=== PATIENT | female | born 1970 | race Caucasian/White ===

== ENCOUNTER → 2016-07-19 | Outpatient (CLI) | payer OTHER ==
[~2016-07-19] MED LIST: CYCL10TA PO; EFFE75CA75 PO; IRON325T PO; KLON1TAB PO; LYRI300C PO; MEDR1VL IM; SYNT125T PO; TRAM50TA2 PO; VITA10002 PO; VITA100037 PO
--- NOTE | 2016-08-04 01:10 | ECWPNPC ---
PATIENT NAME: RANJITH EUGENE : 1970 GENDER: FEMALE VISIT DATE: 07/19/2016 DISCHARGE DATE: 07/19/16 1035 VISIT LOCKED DATE TIME: PHYSICIAN: ANAMIKA EUGENE RESOURCE: ANAMIKA EUGENE REASON FOR APPOINTMENT 1. BACK PAIN HISTORY OF PRESENT ILLNESS HISTORY OF PRESENT ILLNESS: PAIN THE PATIENT DESCRIBES THE PAIN... FALL RISK SCREENING: SCREENING :NO FALLS IN THE PAST YEAR TODAY'S VISIT: NOTES: IS LOOKING TO START PHYSICAL THERAPY. RATES PAIN TODAY 5/10 WITH A PINCHING SENSATION IN LOW BACK AND RIGHT SACRUM. SOME SHOOTING PAIN TO MID THIGH TO RIGHT LEG. NO SENSE OF WEAKNESS IN LEGS. . CURRENT MEDICATIONS TAKING KLONOPIN 1 MG TABLET 1 TABLET ORALLY AT NIGHT, NOTES: 05/03/16 1800 TAKING IRON 325 (65 FE) MG TABLET 1 TABLET ORALLY ONCE A DAY, NOTES: 05/02/16 0700 TAKING LEVOTHYROXINE SODIUM 325 TABLET 1 TABLET ORALLY ONCE A DAY, NOTES: 05/03/16699 TAKING DEPO-PROVERA 150 MG/ML SUSPENSION 1 ML INTRAMUSCULAR EVERY 3 MONTHS, NOTES: 2015 TAKING LYRICA 300 MG CAPSULE 1 CAPSULE ORALLY TWICE A DAY, NOTES: 05/03/16 1800 TAKING TRAMADOL HCL 50 MG TABLET 1 TABLET NEEDED ORALLY 3 TIMES A DAYN NEEDED, NOTES: > 1 WEEK TAKING VITAMIN D 1000 UNIT TABLET 1 TABLET ORALLY ONCE A DAY, NOTES: 05/02/16 0700 TAKING CYCLOBENZAPRINE HCL 10 MG TABLET 1 TABLET ORALLY THREE TIMES A DAY, NOTES: 05/03/16 1800 TAKING WELLBUTRIN 100 MG TABLET 300 IN AM AND 100 AT 12PM ORALLY DAILY TAKING PROZAC 20 MG CAPSULE 1 CAPSULE IN THE MORNING ORALLY ONCE A DAY NOT-TAKING ZOLOFT 25 MG TABLET 75 MG ORALLY ONCE A DAY, NOTES: 05/03/16 0700 NOT-TAKING CYANOCOBALAMIN 1000 MCG TABLET 1 TABLET ORALLY ONCE A DAY NOT-TAKING BACLOFEN 10 MG TABLET 1 TABLET WITH FOOD OR MILK ORALLY THREE TIMES A DAY NOT-TAKING VALIUM 5 MG TABLET 2 TABLET NEEDED ORALLY PRE SEDATION PAST MEDICAL HISTORY BACK PAIN,FIBROMYALGIA,CARMEN,RESTLESS LEG,HYPOTHYROID,DEPRESSION ALLERGIES MORPHINE SULFATE: ITCHING: ALLERGY ANTI-INFLAMMATORY ENZYME: DUE TO GASTRIC BYPASS: CONTRAINDICATION SOCIAL HISTORY GENERAL: TOBACCO USE ARE YOU A:NONSMOKER LEARNING BARRIERS / SPECIAL NEEDS ORIENTED TO PLAN OF CARE: PATIENT, PAIN MANAGEMENT PATIENT, ORIENTED TO PLAN OF CARE: PATIENT, PAIN MANAGEMENT PATIENT. NEW PATIENT PAIN DIARY TODAY'S VISITNOTES FROM 0-10, WHAT LEVEL IS YOUR PAIN TODAY?0 PAIN CLINIC PFS, CLERGY, PUBLIC HEALTH REFERRALS PFS REFERRAL NEEDED?NO CLERGY REFERRAL NEEDED?NO PUBLIC HEALTH REFERRAL NEEDED?NO WAS THE PROVIDER NOTIFIED OF ANY PERTINENT INFO?NO PFS REFERRAL NEEDED?NO CLERGY REFERRAL NEEDED?NO PUBLIC HEALTH REFERRAL NEEDED?NO WAS THE PROVIDER NOTIFIED OF ANY PERTINENT INFO?NO REVIEW OF SYSTEMS CONSTITUTIONAL: ANY CHANGE IN YOUR MEDICAL CONDITION? NO . CHILLS NO . FEVER NO . INFECTION: DO YOU HAVE NEW INFECTIONS? NO . DO YOU HAVE HISTORY OF MRSA? NO . MUSCULOSKELETAL: ANY NEW PATTERNS OF PAIN OR NUMBNESS? NO . GASTROENTEROLOGY: ANY NEW CHANGE IN BOWEL CONTROL? NO . GENITOURINARY: ANY NEW CHANGE IN BLADDER CONTROL? NO . IS THERE A CHANCE YOU COULD BE ? NO . HEMATOLOGY/LYMPH: DO YOU TAKE ANY BLOOD THINNERS? (FOR EXAMPLE- COUMADIN, PLAVIX, AGGRENOX, PLATEL, PRADAXA, OR XARELTO) NO . WHEN WAS YOUR LAST DOSE? DATE: TIME: . NEUROLOGY: HAVE YOU FALLEN IN THE PAST 6 MONTHS? NO . ANY NEW EXTREMITY NUMBNESS OR WEAKNESS? NO . CARDIOLOGY: DO YOU HAVE A PACEMAKER OR DEFIBRILLATOR? NO . RESPIRATORY: HAVE YOU BEEN SICK IN THE PAST WEEK? NO . FEVER NO . FLU LIKE SYMPTOMS? NO . COUGH NO . INTEGUMENTARY: DO YOU HAVE ANY RASHES OR OPEN SORES? NO . ALLERGIC/IMMUNO: ARE YOU ALLERGIC TO SHELLFISH OR IV DYE? NO . ANY NEW ALLERGIES? NO . PSYCHIATRIC: DO YOU HAVE THOUGHTS OF HURTING YOURSELF OR SOMEONE ELSE? NO . ARE YOU ABUSED, NEGLECTED, OR IN AN UNSAFE ENVIRONMENT? NO . ENDOCRINOLOGY: ARE YOU DIABETIC? NO . OTHER: DO YOU NEED ANY PRESCRIPTIONS? YES NEED REFERRAL FOR PT &QUOT;LOST ORIGINAL&QUOT; . IF YES, PLEASE LIST: ____ . ANY NEW PROBLEMS WITH YOUR MEDICATIONS? NO . WHEN DID YOU LAST EAT? ____ . WHEN DID YOU LAST DRINK? ____ . WHAT DID YOU LAST DRINK? ____ . NAME OF PERSON DRIVING YOU HOME? ____ . DO YOU HAVE ANY OTHER QUESTIONS OR CONCERNS NO . REVIEWED BY: PROVIDER: ANAMIKA MANCILLA . VITAL SIGNS WT 214 LBS, HT 65 IN, BMI 35.61 INDEX, BP 138/68 MM HG, HR 97 /MIN, RR 18 /MIN, TEMP 98 F,0 F, OXYGEN SAT % 94, SAFE IN ENV? (Y/N) Y, REVIEWED BY: KG. EXAMINATION GENERAL EXAMINATION: PSYCHALERT , ORIENTED X 3 , APPROPRIATE MOOD AND AFFECT . LUNGS:CLEAR TO AUSCULTATION BILATERALLY. HEART:HEART RATE REGULAR. MUSCULOSKELETAL:SLOW TO RISE TO STANDING POSITION. POSTURE UPRIGHT. GAIT NONANTALGIC. POINT TENDERNESS OVER LEFT SACRALILIAC JOINT AND ACROSS SACRUM. TENDERNESS OVER LUMBAR FACETS AND LUMBAR PARAVEREBRAL MUSCLES. ASSESSMENTS SPONDYLOSIS WITHOUT MYELOPATHY OR RADICULOPATHY, LUMBAR REGION - M47.816 (PRIMARY) SPONDYLOSIS WITHOUT MYELOPATHY OR RADICULOPATHY, LUMBOSACRAL REGION - M47.817 TREATMENT SPONDYLOSIS WITHOUT MYELOPATHY OR RADICULOPATHY, LUMBAR REGION NOTES: START PHYSICAL THERAPY. PROCEDURE CODES FA211 ESTABILISHED PATIENT [facility] CHARGE FOLLOW UP 4-6 WEEKS (REASON: NEED [facility] REFERRAL TO PT IN [place]) ELECTRONICALLY SIGNED BY SALMA ANTONY ON 08/01/2016 AT 03:09 PM EST DISCLAIMER : THIS IS A VISIT SUMMARY EXTRACTED FROM THE [employer] CHART. IT IS NOT A COPY OF THE [employer] PROGRESS NOTE. SONG
== END ==
LOC: M PAIN 09:40
PROVIDERS: ATTEND Nurse Practitioner Family
DX: Z09 Encounter for follow-up examination after completed treatment for conditions other than malignant neoplasm (principal); M47.816 Spondylosis without myelopathy or radiculopathy, lumbar region; M47.817 Spondylosis without myelopathy or radiculopathy, lumbosacral region; M79.7 Fibromyalgia; E03.9 Hypothyroidism, unspecified; G25.81 Restless legs syndrome; G47.30 Sleep apnea, unspecified; F32.9 Major depressive disorder, single episode, unspecified; Z79.891 Long term (current) use of opiate analgesic; Z79.899 Other long term (current) drug therapy

== ENCOUNTER → 2016-07-26 | Outpatient (REF) | payer OTHER ==
[2016-07-26 14:00] LABS: PERCENT SATURATION 11.8 % (13.2-37.4)
[2016-07-26 14:03] LABS: FOLATE 12.2 NG/ML
== END ==
LOC: M LABNEURO 13:15
PROVIDERS: ATTEND Psychiatry & Neurology Neurology
DX: D50.9 Iron deficiency anemia, unspecified (principal)

== ENCOUNTER → 2016-08-31 | Outpatient (CLI) | payer OTHER ==
--- NOTE | 2016-09-02 00:36 | ECWPNPC ---
PATIENT NAME: RANJITH EUGENE : 1970 GENDER: FEMALE VISIT DATE: 08/31/2016 DISCHARGE DATE: 08/31/16 09 VISIT LOCKED DATE TIME: PHYSICIAN: ANAMIKA EUGENE RESOURCE: ANAMIKA EUGENE REASON FOR APPOINTMENT 1. BACK HISTORY OF PRESENT ILLNESS HISTORY OF PRESENT ILLNESS: PAIN THE PATIENT DESCRIBES THE PAIN... FALL RISK SCREENING: SCREENING :NO FALLS IN THE PAST YEAR TODAY'S VISIT: NOTES: RATES PAIN TODAY 5/10. DESCRIBES PAIN CONSTANT WITH INTERMITTANT SEVERE PINCHING SENSATION. NOTES THE SENSATION IS BURNING, TENDER AND SORE. STATES FELT A "SUDDEN POP" ON 08/28/16 WITH SUDDEN INCREASE IN BACK PAIN AND THE FEELING OF THE BACK SHIFTING TO THE LEFT AND PAIN SHOOTING TO THE LEFT LEG. HAD TO REST AND USED THE TENS. PAIN RETURNED TO BASELINE. ALSO HAS PAIN IN RIGHT LEG. NO N/T IN FEET. NO LOSS OF BOWEL OR BLADDER CONTROL. HAS ATTENDED PHYSICAL THERAPY AND THIS WAS HELPFUL IN CONTROLLING PAIN AND STREGTHENING BACK, CORE AND LEG MUSCLES.HAD MRI OF BACK DONE AT [facility]. CURRENT MEDICATIONS TAKING KLONOPIN 1 MG TABLET 1 TABLET ORALLY AT NIGHT TAKING IRON 325 (65 FE) MG TABLET 1 TABLET ORALLY ONCE A DAY TAKING LEVOTHYROXINE SODIUM 325 TABLET 1 TABLET ORALLY ONCE A DAY TAKING LYRICA 300 MG CAPSULE 1 CAPSULE ORALLY TWICE A DAY TAKING TRAMADOL HCL 50 MG TABLET 1 TABLET NEEDED ORALLY 3 TIMES A DAYN NEEDED TAKING VITAMIN D 1000 UNIT TABLET 1 TABLET ORALLY ONCE A DAY TAKING CYCLOBENZAPRINE HCL 10 MG TABLET 1 TABLET ORALLY THREE TIMES A DAY TAKING WELLBUTRIN 100 MG TABLET 300 IN AM AND 100 AT 12PM ORALLY DAILY NOT-TAKING DEPO-PROVERA 150 MG/ML SUSPENSION 1 ML INTRAMUSCULAR EVERY 3 MONTHS NOT-TAKING PROZAC 20 MG CAPSULE 1 CAPSULE IN THE MORNING ORALLY ONCE A DAY NOT-TAKING ZOLOFT 25 MG TABLET 75 MG ORALLY ONCE A DAY, NOTES: 05/03/16 0700 NOT-TAKING CYANOCOBALAMIN 1000 MCG TABLET 1 TABLET ORALLY ONCE A DAY NOT-TAKING BACLOFEN 10 MG TABLET 1 TABLET WITH FOOD OR MILK ORALLY THREE TIMES A DAY NOT-TAKING VALIUM 5 MG TABLET 2 TABLET NEEDED ORALLY PRE SEDATION MEDICATION LIST REVIEWED AND RECONCILED WITH THE PATIENT PAST MEDICAL HISTORY BACK PAIN,FIBROMYALGIA,CARMEN,RESTLESS LEG,HYPOTHYROID,DEPRESSION ALLERGIES MORPHINE SULFATE: ITCHING: ALLERGY ANTI-INFLAMMATORY ENZYME: DUE TO GASTRIC BYPASS: CONTRAINDICATION SOCIAL HISTORY GENERAL: TOBACCO USE ARE YOU A:NONSMOKER LEARNING BARRIERS / SPECIAL NEEDS ORIENTED TO PLAN OF CARE: PATIENT, PAIN MANAGEMENT PATIENT, ORIENTED TO PLAN OF CARE: PATIENT, PAIN MANAGEMENT PATIENT. NEW PATIENT PAIN DIARY TODAY'S VISITNOTES FROM 0-10, WHAT LEVEL IS YOUR PAIN TODAY?0 PAIN CLINIC PFS, CLERGY, PUBLIC HEALTH REFERRALS PFS REFERRAL NEEDED?NO CLERGY REFERRAL NEEDED?NO PUBLIC HEALTH REFERRAL NEEDED?NO WAS THE PROVIDER NOTIFIED OF ANY PERTINENT INFO?NO PFS REFERRAL NEEDED?NO CLERGY REFERRAL NEEDED?NO PUBLIC HEALTH REFERRAL NEEDED?NO WAS THE PROVIDER NOTIFIED OF ANY PERTINENT INFO?NO REVIEW OF SYSTEMS CONSTITUTIONAL: ANY CHANGE IN YOUR MEDICAL CONDITION? NO . CHILLS NO . FEVER NO . INFECTION: DO YOU HAVE NEW INFECTIONS? NO . DO YOU HAVE HISTORY OF MRSA? NO . MUSCULOSKELETAL: ANY NEW PATTERNS OF PAIN OR NUMBNESS? YES THIS PAST MONDAY PT STATES SHE &QUOT;FELT A SHIFT AND MACIAS INCREASED&QUOT; . GASTROENTEROLOGY: ANY NEW CHANGE IN BOWEL CONTROL? NO . GENITOURINARY: ANY NEW CHANGE IN BLADDER CONTROL? NO . IS THERE A CHANCE YOU COULD BE ? NO . HEMATOLOGY/LYMPH: DO YOU TAKE ANY BLOOD THINNERS? (FOR EXAMPLE- COUMADIN, PLAVIX, AGGRENOX, PLATEL, PRADAXA, OR XARELTO) NO . WHEN WAS YOUR LAST DOSE? DATE: TIME: . NEUROLOGY: HAVE YOU FALLEN IN THE PAST 6 MONTHS? NO . ANY NEW EXTREMITY NUMBNESS OR WEAKNESS? NO . CARDIOLOGY: DO YOU HAVE A PACEMAKER OR DEFIBRILLATOR? NO . RESPIRATORY: HAVE YOU BEEN SICK IN THE PAST WEEK? NO . FEVER NO . FLU LIKE SYMPTOMS? NO . COUGH NO . INTEGUMENTARY: DO YOU HAVE ANY RASHES OR OPEN SORES? NO . ALLERGIC/IMMUNO: ARE YOU ALLERGIC TO SHELLFISH OR IV DYE? NO . ANY NEW ALLERGIES? NO . PSYCHIATRIC: DO YOU HAVE THOUGHTS OF HURTING YOURSELF OR SOMEONE ELSE? NO . ARE YOU ABUSED, NEGLECTED, OR IN AN UNSAFE ENVIRONMENT? NO . ENDOCRINOLOGY: ARE YOU DIABETIC? NO . OTHER: DO YOU NEED ANY PRESCRIPTIONS? YES TRADOLAM . IF YES, PLEASE LIST: ____ . ANY NEW PROBLEMS WITH YOUR MEDICATIONS? NO . WHEN DID YOU LAST EAT? ____ . WHEN DID YOU LAST DRINK? ____ . WHAT DID YOU LAST DRINK? ____ . NAME OF PERSON DRIVING YOU HOME? ____ . DO YOU HAVE ANY OTHER QUESTIONS OR CONCERNS NO . REVIEWED BY: PROVIDER: ANAMIKA MANCILLA . VITAL SIGNS WT 220.8 LBS, HT 65 IN, BMI 36.74 INDEX, BP 126/62 MM HG, HR 87 /MIN, RR 16 /MIN, TEMP 98.9 F, OXYGEN SAT % 96%, NA INITIALS SC 08:35. EXAMINATION GENERAL EXAMINATION: PSYCHALERT , ORIENTED X 3 , APPROPRIATE MOOD AND AFFECT . LUNGS:CLEAR TO AUSCULTATION BILATERALLY. HEART:HEART RATE REGULAR. MUSCULOSKELETAL:SLOW TO RISE TO STANDING POSITION. POSTURE UPRIGHT. GAIT NONANTALGIC. POINT TENDERNESS OVER LEFT SACRALILIAC JOINT AND ACROSS SACRUM. TENDERNESS OVER LUMBAR FACETS AND LUMBAR PARAVEREBRAL MUSCLES. ASSESSMENTS SPONDYLOSIS WITHOUT MYELOPATHY OR RADICULOPATHY, LUMBAR REGION - M47.816 (PRIMARY) SPONDYLOSIS WITHOUT MYELOPATHY OR RADICULOPATHY, LUMBOSACRAL REGION - M47.817 TREATMENT SPONDYLOSIS WITHOUT MYELOPATHY OR RADICULOPATHY, LUMBAR REGION NOTES: RESTART PHYSICAL THERAPY. CONTINUE TRAMADOL ORDERED. WALK AND STTETCH AT HOME. PROCEDURE CODES FA211 ESTABILISHED PATIENT [facility] CHARGE DISPOSITION & COMMUNICATION FOLLOW UP 4-6 WEEKS (REASON: NEED MRI AND EMG FROM NEUROLOGY NEED [facility]) ELECTRONICALLY SIGNED BY SALMA ANTONY ON 09/01/2016 AT 01:34 PM EST DISCLAIMER : THIS IS A VISIT SUMMARY EXTRACTED FROM THE [employer] CHART. IT IS NOT A COPY OF THE [employer] PROGRESS NOTE. SUGEYD
== END ==
LOC: M PAIN 08:40
PROVIDERS: ATTEND Nurse Practitioner Family
DX: Z09 Encounter for follow-up examination after completed treatment for conditions other than malignant neoplasm (principal); G89.29 Other chronic pain; M47.816 Spondylosis without myelopathy or radiculopathy, lumbar region; M47.817 Spondylosis without myelopathy or radiculopathy, lumbosacral region; M79.7 Fibromyalgia; G47.33 Obstructive sleep apnea (adult) (pediatric); G25.81 Restless legs syndrome; E03.9 Hypothyroidism, unspecified; F32.9 Major depressive disorder, single episode, unspecified; Z88.5 Allergy status to narcotic agent; Z88.8 Allergy status to other drugs, medicaments and biological substances; Z79.891 Long term (current) use of opiate analgesic; Z79.899 Other long term (current) drug therapy

== ENCOUNTER → 2016-09-23 | Outpatient (CLI) | payer OTHER ==
--- NOTE | 2016-09-28 10:05 | DEXA ---
AP SPINE L1 - L4 1.281 0.7 -0.4 LT FEMUR TOTAL 1.113 0.8 0.3 RT FEMUR TOTAL 1.088 0.6 0.1 TOTAL BODY TOTAL OTHER DUAL FEMUR FRAX* ASSESSMENT Risk factors: None. 10 year probability of fracture Major osteoporotic fracture 2.3 % Hip fracture 0.1 % COMMENTS: Normal bone densitometry of the spine and hips. FOLLOW-UP: Recommendation for the next bone density exam: 5 years. MTDD
== END ==
LOC: M WHC 11:03
PROVIDERS: ATTEND Physician Assistant Medical
DX: Z79.899 Other long term (current) drug therapy (principal)

== ENCOUNTER → 2016-10-11 | Outpatient (CLI) | payer OTHER ==
--- NOTE | 2016-10-12 01:57 | ECWPNPC ---
PATIENT NAME: RANJITH EUGENE : 1970 GENDER: FEMALE VISIT DATE: 10/11/2016 DISCHARGE DATE: 10/11/16 0935 VISIT LOCKED DATE TIME: PHYSICIAN: ANAMIKA EUGENE RESOURCE: ANAMIKA EUGENE REASON FOR APPOINTMENT 1. BACK HISTORY OF PRESENT ILLNESS HISTORY OF PRESENT ILLNESS: PAIN THE PATIENT DESCRIBES THE PAIN... FALL RISK SCREENING: SCREENING :NO FALLS IN THE PAST YEAR TODAY'S VISIT: NOTES: OVER LAST SEVERAL WEEKS HAS NOTED INCREASE IN LOW BACK PAIN. HAS RESTARTED PT 2 WEEKS AGO. AND OCCASIONALY HAS SIG PAIN AFTER TX. LEFT > RIGHT AND PAIN IS PINCHING AND LOCKING INTO LEFT BUTTUCK AND OCCASIONALLY ALL THE WAY TO FOOT. NO WEAKNESS OR SENS CHANGE IN LEF. HAS SENS OF A CHARP LOCK SENSATION AND CAN LOSE BALANCE. RATES PAIN TODAY 5/10. DESCRIBES PAIN CONSTANT, ACHING, TENDER , SHOOTING, PINCHING AND LOCKING. REPORTS PAIN CAN BE SO SEVERE TO TAKE HER OFF HER FEET.. CURRENT MEDICATIONS TAKING KLONOPIN 1 MG TABLET 1 TABLET ORALLY AT NIGHT TAKING IRON 325 (65 FE) MG TABLET 1 TABLET ORALLY ONCE A DAY TAKING LEVOTHYROXINE SODIUM 325 TABLET 1 TABLET ORALLY ONCE A DAY TAKING LYRICA 300 MG CAPSULE 1 CAPSULE ORALLY TWICE A DAY TAKING TRAMADOL HCL 50 MG TABLET 1 TABLET NEEDED ORALLY 3 TIMES A DAYN NEEDED TAKING VITAMIN D 1000 UNIT TABLET 1 TABLET ORALLY ONCE A DAY TAKING CYCLOBENZAPRINE HCL 10 MG TABLET 1 TABLET ORALLY THREE TIMES A DAY TAKING WELLBUTRIN 100 MG TABLET 300 IN AM AND 100 AT 12PM ORALLY DAILY TAKING HORIZANT 300 MG TABLET EXTENDED RELEASE 24 HOUR 2 TABLETS IN THE EVENING WITH FOOD ORALLY ONCE A DAY NOT-TAKING DEPO-PROVERA 150 MG/ML SUSPENSION 1 ML INTRAMUSCULAR EVERY 3 MONTHS NOT-TAKING PROZAC 20 MG CAPSULE 1 CAPSULE IN THE MORNING ORALLY ONCE A DAY NOT-TAKING ZOLOFT 25 MG TABLET 75 MG ORALLY ONCE A DAY, NOTES: 05/03/16 0700 NOT-TAKING CYANOCOBALAMIN 1000 MCG TABLET 1 TABLET ORALLY ONCE A DAY NOT-TAKING BACLOFEN 10 MG TABLET 1 TABLET WITH FOOD OR MILK ORALLY THREE TIMES A DAY NOT-TAKING VALIUM 5 MG TABLET 2 TABLET NEEDED ORALLY PRE SEDATION MEDICATION LIST REVIEWED AND RECONCILED WITH THE PATIENT PAST MEDICAL HISTORY BACK PAIN,FIBROMYALGIA,CARMEN,RESTLESS LEG,HYPOTHYROID,DEPRESSION ALLERGIES MORPHINE SULFATE: ITCHING: ALLERGY ANTI-INFLAMMATORY ENZYME: DUE TO GASTRIC BYPASS: CONTRAINDICATION SOCIAL HISTORY GENERAL: PAIN CLINIC PFS, CLERGY, PUBLIC HEALTH REFERRALS CLERGY REFERRAL NEEDED?NO WAS THE PROVIDER NOTIFIED OF ANY PERTINENT INFO?NO PFS REFERRAL NEEDED?NO PUBLIC HEALTH REFERRAL NEEDED?NO PATIENT: ____. REVIEW OF SYSTEMS CONSTITUTIONAL: ANY CHANGE IN YOUR MEDICAL CONDITION? NO . CHILLS NO . FEVER NO . INFECTION: DO YOU HAVE NEW INFECTIONS? NO . DO YOU HAVE HISTORY OF MRSA? NO . MUSCULOSKELETAL: ANY NEW PATTERNS OF PAIN OR NUMBNESS? YES, PT STATES THAT SHE HAS BEEN HAVING AN INCREASED IN LOCKING SENSATION IN BACK, LEFT LEG HAS BEEN GIVING OUT, PULSATING, THROBBING PAIN, PT STATES THAT SHE IS STILL DOING PHYSICAL THERAPY AT THIS TIME, PT STATES THAT THE PHYSICAL THERAPY HAS NOT GIVEN HER MUCH IMPROVEMENT BUT REALIZES THAT IT TAKES TIME FOR RESULTS. . GASTROENTEROLOGY: ANY NEW CHANGE IN BOWEL CONTROL? NO . GENITOURINARY: ANY NEW CHANGE IN BLADDER CONTROL? NO . IS THERE A CHANCE YOU COULD BE ? NO . HEMATOLOGY/LYMPH: DO YOU TAKE ANY BLOOD THINNERS? (FOR EXAMPLE- COUMADIN, PLAVIX, AGGRENOX, PLATEL, PRADAXA, OR XARELTO) NO . WHEN WAS YOUR LAST DOSE? DATE: TIME: . NEUROLOGY: HAVE YOU FALLEN IN THE PAST 6 MONTHS? NO . ANY NEW EXTREMITY NUMBNESS OR WEAKNESS? NO . CARDIOLOGY: DO YOU HAVE A PACEMAKER OR DEFIBRILLATOR? NO . RESPIRATORY: HAVE YOU BEEN SICK IN THE PAST WEEK? NO . FEVER NO . FLU LIKE SYMPTOMS? NO . COUGH NO . INTEGUMENTARY: DO YOU HAVE ANY RASHES OR OPEN SORES? NO . ALLERGIC/IMMUNO: ARE YOU ALLERGIC TO SHELLFISH OR IV DYE? NO . ANY NEW ALLERGIES? NO . PSYCHIATRIC: DO YOU HAVE THOUGHTS OF HURTING YOURSELF OR SOMEONE ELSE? NO . ARE YOU ABUSED, NEGLECTED, OR IN AN UNSAFE ENVIRONMENT? NO . ENDOCRINOLOGY: ARE YOU DIABETIC? NO . OTHER: DO YOU NEED ANY PRESCRIPTIONS? NO . IF YES, PLEASE LIST: ____ . ANY NEW PROBLEMS WITH YOUR MEDICATIONS? NO . WHEN DID YOU LAST EAT? ____ . WHEN DID YOU LAST DRINK? ____ . WHAT DID YOU LAST DRINK? ____ . NAME OF PERSON DRIVING YOU HOME? ____ . DO YOU HAVE ANY OTHER QUESTIONS OR CONCERNS NO . REVIEWED BY: PROVIDER: ANAMIKA MANCILLA . VITAL SIGNS WT 216 LBS, HT 65 IN, BMI 35.94 INDEX, BP 133/72 MM HG, HR 114 /MIN, RR 16 /MIN, TEMP 98.6 F, OXYGEN SAT % 96%, SAFE IN ENV? (Y/N) Y, NA INITIALS CO 08:44, REVIEWED BY: DS. EXAMINATION GENERAL EXAMINATION: PSYCHALERT , ORIENTED X 3 , APPROPRIATE MOOD AND AFFECT . LUNGS:CLEAR TO AUSCULTATION BILATERALLY. HEART:HEART RATE RAPID, REGULAR. MUSCULOSKELETAL:SLOW TO RISE TO STANDING POSITION. POSTURE UPRIGHT. GAIT NONANTALGIC. POINT TENDERNESS OVER LEFT SACRALILIAC JOINT AND ACROSS SACRUM. TENDERNESS OVER LUMBAR FACETS AND LUMBAR PARAVEREBRAL MUSCLES. DIAGNOSTIC TESTS REVIEWEDMRI OF LUMBAR SPINE COMPLETED 08/09/16 REVIEWED WITH PATIENT. 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 MILD DEGENERATIVE DISC DISEASE AT L3-4, L4-5 AND L5S1. TINY CENTRAL DISC PROTRUSION AT L5-S1. EMG /NCS OF THE BILATERAL LOWER EXTREMITIESCOMPLETED ON 08/03/16 WAS A NORMAL STUDY. ASSESSMENTS SPONDYLOSIS WITHOUT MYELOPATHY OR RADICULOPATHY, LUMBAR REGION - M47.816 (PRIMARY) SPONDYLOSIS WITHOUT MYELOPATHY OR RADICULOPATHY, LUMBOSACRAL REGION - M47.817 TREATMENT SPONDYLOSIS WITHOUT MYELOPATHY OR RADICULOPATHY, LUMBAR REGION NOTES: CONTINUE PHYSICAL THERAPY - ADD WORK FOR L5-S1 DISC PROTRUION. CALL IF INJECTION NEEDED. PROCEDURE CODES FA211 ESTABILISHED PATIENT [facility] CHARGE DISPOSITION & COMMUNICATION FOLLOW UP 4-6 WEEKS (REASON: OK TO CALL TO ORDER/SCHEDULE LEFT L4-5, L5-S1 THERAPEUTIC FACET BLOCK) ELECTRONICALLY SIGNED BY SALMA ANTONY ON 10/11/2016 AT 10:25 AM EDT DISCLAIMER : THIS IS A VISIT SUMMARY EXTRACTED FROM THE [employer] CHART. IT IS NOT A COPY OF THE [employer] PROGRESS NOTE. SONG
== END ==
LOC: M PAIN 08:40
PROVIDERS: ATTEND Nurse Practitioner Family
DX: Z09 Encounter for follow-up examination after completed treatment for conditions other than malignant neoplasm (principal); G89.29 Other chronic pain; M47.816 Spondylosis without myelopathy or radiculopathy, lumbar region; M47.817 Spondylosis without myelopathy or radiculopathy, lumbosacral region; G47.33 Obstructive sleep apnea (adult) (pediatric); G25.81 Restless legs syndrome; E03.9 Hypothyroidism, unspecified; F32.9 Major depressive disorder, single episode, unspecified; Z88.5 Allergy status to narcotic agent; Z88.8 Allergy status to other drugs, medicaments and biological substances; Z79.899 Other long term (current) drug therapy

== ENCOUNTER → 2016-10-31 | Outpatient (REF) | payer OTHER | LOC: M LABDRAW1 11:54 | PROVIDERS: ATTEND Physician Assistant Medical | DX: E03.9 Hypothyroidism, unspecified (principal) ==

== ENCOUNTER → 2016-11-22 | Outpatient (CLI) | payer OTHER ==
--- NOTE | 2016-12-07 02:46 | ECWPNPC ---
PATIENT NAME: RANJITH EUGENE : 1970 GENDER: FEMALE VISIT DATE: 11/22/2016 DISCHARGE DATE: 11/22/16 0932 VISIT LOCKED DATE TIME: PHYSICIAN: ANAMIKA EUGENE RESOURCE: ANAMIKA EUGENE REASON FOR APPOINTMENT 1. OK TO CALL TO ORDER/SCHEDULE LEFT L4-5, L5-S1 THERAPEUTIC FACET BLOCK HISTORY OF PRESENT ILLNESS HISTORY OF PRESENT ILLNESS: PAIN THE PATIENT DESCRIBES THE PAIN... FALL RISK SCREENING: SCREENING :NO FALLS IN THE PAST YEAR TODAY'S VISIT: NOTES: RATES PAIN LEVEL TODAY 4/10. DESCRIBES PAIN INTERMITTANT, TENDER AND SORE. PAIN IS CENTERD ACROSSS THE LOW BACK WITH NO RADIATION TO THE LEGS.HAS FINISHED AT PHYSICAL THERAPY. IS DOING HOME EXERCISES NEAR DAILY. IS USING HER BALANCE BALL, AND THE TENS UNIT. . CURRENT MEDICATIONS TAKING KLONOPIN 1 MG TABLET 1 TABLET ORALLY AT NIGHT TAKING IRON 325 (65 FE) MG TABLET 1 TABLET ORALLY ONCE A DAY TAKING LEVOTHYROXINE SODIUM 300 MCG TABLET 1 TABLET ORALLY ONCE A DAY TAKING LYRICA 300 MG CAPSULE 2 CAPSULE ORALLY DAILY TAKING TRAMADOL HCL 50 MG TABLET 1 TABLET NEEDED ORALLY 3 TIMES A DAYN NEEDED TAKING VITAMIN D 1000 UNIT TABLET 1 TABLET ORALLY ONCE A DAY TAKING CYCLOBENZAPRINE HCL 10 MG TABLET 1 TABLET ORALLY THREE TIMES A DAY TAKING WELLBUTRIN 100 MG TABLET 300 IN AM AND 100 AT 12PM ORALLY DAILY TAKING HORIZANT 300 MG TABLET EXTENDED RELEASE 24 HOUR 2 TABLETS IN THE EVENING WITH FOOD ORALLY ONCE A DAY TAKING LAMOTRIGINE 200 MG TABLET 1 TABLET ORALLY DAILY NOT-TAKING DEPO-PROVERA 150 MG/ML SUSPENSION 1 ML INTRAMUSCULAR EVERY 3 MONTHS NOT-TAKING PROZAC 20 MG CAPSULE 1 CAPSULE IN THE MORNING ORALLY ONCE A DAY NOT-TAKING ZOLOFT 25 MG TABLET 75 MG ORALLY ONCE A DAY, NOTES: 05/03/16 0700 NOT-TAKING CYANOCOBALAMIN 1000 MCG TABLET 1 TABLET ORALLY ONCE A DAY NOT-TAKING BACLOFEN 10 MG TABLET 1 TABLET WITH FOOD OR MILK ORALLY THREE TIMES A DAY NOT-TAKING VALIUM 5 MG TABLET 2 TABLET NEEDED ORALLY PRE SEDATION MEDICATION LIST REVIEWED AND RECONCILED WITH THE PATIENT PAST MEDICAL HISTORY BACK PAIN,FIBROMYALGIA,CARMEN,RESTLESS LEG,HYPOTHYROID,DEPRESSION ALLERGIES MORPHINE SULFATE: ITCHING: ALLERGY ANTI-INFLAMMATORY ENZYME: DUE TO GASTRIC BYPASS: CONTRAINDICATION REVIEW OF SYSTEMS CONSTITUTIONAL: ANY CHANGE IN YOUR MEDICAL CONDITION? NO . CHILLS NO . FEVER NO . INFECTION: DO YOU HAVE NEW INFECTIONS? NO . DO YOU HAVE HISTORY OF MRSA? NO . MUSCULOSKELETAL: ANY NEW PATTERNS OF PAIN OR NUMBNESS? NO . GASTROENTEROLOGY: GENERAL INTERMITTANT CONSTIPATION DUE TO IRON . ANY NEW CHANGE IN BOWEL CONTROL? NO . GENITOURINARY: ANY NEW CHANGE IN BLADDER CONTROL? NO . IS THERE A CHANCE YOU COULD BE ? NO . HEMATOLOGY/LYMPH: GENERAL TO SEE HEMATOLOGY ABOUT LOW IRON LEVELS. . DO YOU TAKE ANY BLOOD THINNERS? (FOR EXAMPLE- COUMADIN, PLAVIX, AGGRENOX, PLATEL, PRADAXA, OR XARELTO) NO . WHEN WAS YOUR LAST DOSE? DATE: TIME: . NEUROLOGY: HAVE YOU FALLEN IN THE PAST 6 MONTHS? NO . ANY NEW EXTREMITY NUMBNESS OR WEAKNESS? NO . CARDIOLOGY: DO YOU HAVE A PACEMAKER OR DEFIBRILLATOR? NO . RESPIRATORY: HAVE YOU BEEN SICK IN THE PAST WEEK? NO . FEVER NO . FLU LIKE SYMPTOMS? NO . COUGH NO . INTEGUMENTARY: DO YOU HAVE ANY RASHES OR OPEN SORES? NO . ALLERGIC/IMMUNO: ARE YOU ALLERGIC TO SHELLFISH OR IV DYE? NO . ANY NEW ALLERGIES? NO . PSYCHIATRIC: DO YOU HAVE THOUGHTS OF HURTING YOURSELF OR SOMEONE ELSE? NO . ARE YOU ABUSED, NEGLECTED, OR IN AN UNSAFE ENVIRONMENT? NO . ENDOCRINOLOGY: ARE YOU DIABETIC? NO . OTHER: DO YOU NEED ANY PRESCRIPTIONS? NO . IF YES, PLEASE LIST: ____ . ANY NEW PROBLEMS WITH YOUR MEDICATIONS? NO . WHEN DID YOU LAST EAT? ____ . WHEN DID YOU LAST DRINK? ____ . WHAT DID YOU LAST DRINK? ____ . NAME OF PERSON DRIVING YOU HOME? ____ . DO YOU HAVE ANY OTHER QUESTIONS OR CONCERNS NO . REVIEWED BY: PROVIDER: ANAMIKA MANCILLA . VITAL SIGNS WT 216.4 LBS, HT 65 IN, BMI 36.01 INDEX, BP 130/76 MM HG, HR 108 /MIN, RR 16 /MIN, TEMP 97.8 F, OXYGEN SAT % 99%, NA INITIALS SC 08:45, REVIEWED BY: CS. EXAMINATION GENERAL EXAMINATION: PSYCHALERT , ORIENTED X 3 , APPROPRIATE MOOD AND AFFECT . LUNGS:CLEAR TO AUSCULTATION BILATERALLY. HEART:HEART RATE RAPID, REGULAR. MUSCULOSKELETAL: POSTURE UPRIGHT. GAIT NONANTALGIC. POINT TENDERNESS OVER LEFT SACRALILIAC JOINT AND ACROSS SACRUM. TENDERNESS OVER LUMBAR FACETS AND LUMBAR PARAVEREBRAL MUSCLES. ASSESSMENTS SPONDYLOSIS WITHOUT MYELOPATHY OR RADICULOPATHY, LUMBAR REGION - M47.816 (PRIMARY) SPONDYLOSIS WITHOUT MYELOPATHY OR RADICULOPATHY, LUMBOSACRAL REGION - M47.817 TREATMENT SPONDYLOSIS WITHOUT MYELOPATHY OR RADICULOPATHY, LUMBAR REGION REFILL CYCLOBENZAPRINE HCL TABLET, 10 MG, 1 TABLET, ORALLY, THREE TIMES A DAY, 90 DAY(S), 270 TABLET, REFILLS 2 NOTES: CONTINUE EXERCISES AND STRETCHES. WALK EVERY DAY. CONTINUE CURRENT MEDS. PROCEDURE CODES FA211 ESTABILISHED PATIENT [facility] CHARGE DISPOSITION & COMMUNICATION FOLLOW UP EARLY MAR ELECTRONICALLY SIGNED BY SALMA ANTONY ON 12/06/2016 AT 08:57 AM EDT DISCLAIMER : THIS IS A VISIT SUMMARY EXTRACTED FROM THE [employer] CHART. IT IS NOT A COPY OF THE [employer] PROGRESS NOTE. SONG
== END ==
LOC: M PAIN 08:40
PROVIDERS: ATTEND Nurse Practitioner Family
DX: G89.29 Other chronic pain (principal); M47.816 Spondylosis without myelopathy or radiculopathy, lumbar region; M47.817 Spondylosis without myelopathy or radiculopathy, lumbosacral region; Z88.5 Allergy status to narcotic agent; Z88.8 Allergy status to other drugs, medicaments and biological substances; Z79.899 Other long term (current) drug therapy

== ENCOUNTER → 2016-11-25 | Outpatient (REF) | payer OTHER ==
[2016-11-25 11:34] LABS: PERCENT SATURATION 8.5 % (13.2-37.4)
[2016-11-25 11:42] LABS: FOLATE 10.3 NG/ML
== END ==
LOC: M LAB REF 11:03
PROVIDERS: ATTEND Internal Medicine Medical Oncology
DX: D50.9 Iron deficiency anemia, unspecified (principal)

== ENCOUNTER → 2016-12-21 | Outpatient (REF) | payer OTHER ==
[2016-12-21 13:10] LABS: FREE T4 0.83 NG/DL (0.76-1.46)
== END ==
LOC: M LABDRAW1 11:56
PROVIDERS: ATTEND Internal Medicine Endocrinology, Diabetes & Metabolism
DX: E03.9 Hypothyroidism, unspecified (principal)

== ENCOUNTER → 2017-03-03 | Outpatient (REF) | payer OTHER ==
[~2017-03-03] MED LIST changes: -VITA100037 PO; +VITA100067 PO
[2017-03-03 15:33] LABS: FREE T4 0.22 NG/DL (0.76-1.46)
[2017-03-11 00:06] LABS: FREE T4 BY DIALYSIS DIRECT <0.20 ng/dL (.)
== END ==
LOC: M LABDRAW1 09:10
PROVIDERS: ATTEND Internal Medicine Endocrinology, Diabetes & Metabolism
DX: E03.9 Hypothyroidism, unspecified (principal)

== ENCOUNTER → 2017-03-09 | Outpatient (REF) | payer OTHER ==
[2017-03-09 20:20] LABS: PERCENT SATURATION 32.3 % (13.2-45.0)
== END ==
LOC: M LAB REF 15:00
PROVIDERS: ATTEND Internal Medicine Medical Oncology
DX: D50.9 Iron deficiency anemia, unspecified (principal)

== ENCOUNTER → 2017-03-10 | Outpatient (CLI) | payer OTHER ==
--- NOTE | 2017-04-02 01:39 | ECWPNPC ---
PATIENT NAME: RANJITH EUGENE : 1970 GENDER: FEMALE VISIT DATE: 03/10/2017 DISCHARGE DATE: 03/10/17926 VISIT LOCKED DATE TIME: PHYSICIAN: ANAMIKA EUGENE RESOURCE: ANAMIKA EUGENE REASON FOR APPOINTMENT 1. LOW BACK HISTORY OF PRESENT ILLNESS HISTORY OF PRESENT ILLNESS: PAIN THE PATIENT DESCRIBES THE PAIN... FALL RISK SCREENING: SCREENING :NO FALLS IN THE PAST YEAR TODAY'S VISIT: NOTES: RATES PAIN TODAY 5/10. DESCRIBES PAIN CONSTANT, ACHING, BURNING TENDER, THROBBING AND SORE. PAIN IS CENTERED ACROSS THE LOW BACK NOTES SOME RADIATION OF THROBBING PAIN TO MID THIGHS. TWO WEEKS AFTER LAST VISIT HAS SEVERAL WEEKS OF SEVERE BACK PAIN AFTER SITTING CROSS LEGGED. . CURRENT MEDICATIONS TAKING KLONOPIN 1 MG TABLET 1 TABLET ORALLY AT NIGHT TAKING IRON 325 (65 FE) MG TABLET 1 TABLET ORALLY ONCE A DAY TAKING LYRICA 300 MG CAPSULE 2 CAPSULE ORALLY DAILY TAKING TRAMADOL HCL 50 MG TABLET 1 TABLET NEEDED ORALLY 3 TIMES A DAYN NEEDED TAKING VITAMIN D 1000 UNIT TABLET 1 TABLET ORALLY ONCE A DAY TAKING HORIZANT 300 MG TABLET EXTENDED RELEASE 24 HOUR 2 TABLETS IN THE EVENING WITH FOOD ORALLY ONCE A DAY TAKING CYCLOBENZAPRINE HCL 10 MG TABLET 1 TABLET ORALLY THREE TIMES A DAY NOT-TAKING LEVOTHYROXINE SODIUM 300 MCG TABLET 1 TABLET ORALLY ONCE A DAY NOT-TAKING WELLBUTRIN 100 MG TABLET 300 IN AM AND 100 AT 12PM ORALLY DAILY NOT-TAKING LAMOTRIGINE 200 MG TABLET 1 TABLET ORALLY DAILY NOT-TAKING DEPO-PROVERA 150 MG/ML SUSPENSION 1 ML INTRAMUSCULAR EVERY 3 MONTHS NOT-TAKING PROZAC 20 MG CAPSULE 1 CAPSULE IN THE MORNING ORALLY ONCE A DAY NOT-TAKING ZOLOFT 25 MG TABLET 75 MG ORALLY ONCE A DAY, NOTES: 05/03/16 0700 NOT-TAKING CYANOCOBALAMIN 1000 MCG TABLET 1 TABLET ORALLY ONCE A DAY NOT-TAKING BACLOFEN 10 MG TABLET 1 TABLET WITH FOOD OR MILK ORALLY THREE TIMES A DAY NOT-TAKING VALIUM 5 MG TABLET 2 TABLET NEEDED ORALLY PRE SEDATION MEDICATION LIST REVIEWED AND RECONCILED WITH THE PATIENT PAST MEDICAL HISTORY BACK PAIN,FIBROMYALGIA,CARMEN,RESTLESS LEG,HYPOTHYROID,DEPRESSION ALLERGIES MORPHINE SULFATE: ITCHING: ALLERGY ANTI-INFLAMMATORY ENZYME: DUE TO GASTRIC BYPASS: CONTRAINDICATION SURGICAL HISTORY BREAST REDUCTION,GASTRIC BYPASS, 2015 2 C SECTIONS PAST CHOLECYSTECTOMY 2009 HEMMORRHOIDECTOM 2008 HEMMORHOID HOSPITALIZATION/MAJOR DIAGNOSTIC PROCEDURE SURG RELATED PLUS BACK PAIN REVIEW OF SYSTEMS REVIEWED BY: PROVIDER: ANAMIKA MANCILLA . CONSTITUTIONAL: ANY CHANGE IN YOUR MEDICAL CONDITION? NO . CHILLS NO . FEVER NO . INFECTION: DO YOU HAVE NEW INFECTIONS? NO . DO YOU HAVE HISTORY OF MRSA? NO . MUSCULOSKELETAL: ANY NEW PATTERNS OF PAIN OR NUMBNESS? NO . GASTROENTEROLOGY: ANY NEW CHANGE IN BOWEL CONTROL? NO . GENITOURINARY: ANY NEW CHANGE IN BLADDER CONTROL? NO . IS THERE A CHANCE YOU COULD BE ? NO . HEMATOLOGY/LYMPH: DO YOU TAKE ANY BLOOD THINNERS? (FOR EXAMPLE- COUMADIN, PLAVIX, AGGRENOX, PLATEL, PRADAXA, OR XARELTO) NO . WHEN WAS YOUR LAST DOSE? DATE: TIME: . NEUROLOGY: HAVE YOU FALLEN IN THE PAST 6 MONTHS? NO . ANY NEW EXTREMITY NUMBNESS OR WEAKNESS? NO . VERTIGO NEW ONSET - ATTENDING PHYSICAL THERAPY . CARDIOLOGY: DO YOU HAVE A PACEMAKER OR DEFIBRILLATOR? NO . RESPIRATORY: HAVE YOU BEEN SICK IN THE PAST WEEK? NO . FEVER NO . FLU LIKE SYMPTOMS? NO . COUGH NO . INTEGUMENTARY: DO YOU HAVE ANY RASHES OR OPEN SORES? NO . ALLERGIC/IMMUNO: ARE YOU ALLERGIC TO SHELLFISH OR IV DYE? NO . ANY NEW ALLERGIES? NO . PSYCHIATRIC: DO YOU HAVE THOUGHTS OF HURTING YOURSELF OR SOMEONE ELSE? NO . ARE YOU ABUSED, NEGLECTED, OR IN AN UNSAFE ENVIRONMENT? NO . ENDOCRINOLOGY: THYROID DISEASE FOLLOWS WITH DR KERRIE BAJWA - THYROID NOT FUNCTIONING AND MED HAS BEEN CHANGE . ARE YOU DIABETIC? NO . OTHER: DO YOU NEED ANY PRESCRIPTIONS? NO . IF YES, PLEASE LIST: ____ . ANY NEW PROBLEMS WITH YOUR MEDICATIONS? NO . WHEN DID YOU LAST EAT? ____ . WHEN DID YOU LAST DRINK? ____ . WHAT DID YOU LAST DRINK? ____ . NAME OF PERSON DRIVING YOU HOME? ____ . DO YOU HAVE ANY OTHER QUESTIONS OR CONCERNS NO . PSYCHOLOGY: DEPRESSION HAS WEANED SELF OFF MEDS AND HAS GOOD ENERGY LEVEL . VITAL SIGNS WT 222 LBS, HT 65 IN, BMI 36.94 INDEX, BP 119/64 MM HG, HR 81 /MIN, RR 16 /MIN, TEMP 97.8 F, OXYGEN SAT % 98, REVIEWED BY: EM. EXAMINATION GENERAL EXAMINATION: PSYCHALERT , ORIENTED X 3 , APPROPRIATE MOOD AND AFFECT . LUNGS:CLEAR TO AUSCULTATION BILATERALLY. HEART:HEART RATE RAPID, REGULAR. MUSCULOSKELETAL:POSTURE UPRIGHT. GAIT NONANTALGIC. POINT TENDERNESS OVER BILATERAL LUMBAR FACETS AND LUMBAR PARASPINOUS MUSCLES. INCREASED PAIN WITH BACK EXTENSION.. ASSESSMENTS SPONDYLOSIS WITHOUT MYELOPATHY OR RADICULOPATHY, LUMBAR REGION - M47.816 (PRIMARY) SPONDYLOSIS WITHOUT MYELOPATHY OR RADICULOPATHY, LUMBOSACRAL REGION - M47.817 TREATMENT SPONDYLOSIS WITHOUT MYELOPATHY OR RADICULOPATHY, LUMBAR REGION INJECTION FACET JOINT/NERVE LUMBAR/SACRALANAMIKA EUGENE 03/10/2017 9:07:45 AM > BILATERAL THERAPEUTIC L4-5 AND L5-S1 NOTES: CONTINUE CURRENT MEDS. WALK EVERY DAY. DO EXERCISES AND STRETCHES. PREVENTIVE MEDICINE WENT OVER PRE PROCEDURE CARE AND PROCEDURE WITH UNDERSTANDING EXPRESSED BY PT. PROCEDURE CODES FA211 ESTABILISHED PATIENT [facility] FACILITY CHARGE DISPOSITION & COMMUNICATION FOLLOW UP AFTER INJECTION (REASON: CHECK AUTH THERAPEUTIC BILATERAL LUMBAR FACET BLOCK AT L4-5 AND L5-S1) ELECTRONICALLY SIGNED BY SALMA ANTONY ON 03/30/2017 AT 09:17 PM EDT DISCLAIMER : THIS IS A VISIT SUMMARY EXTRACTED FROM THE [email or web address] CHART. IT IS NOT A COPY OF THE [email or web address] PROGRESS NOTE. SONG
== END ==
LOC: M PAIN 08:40
PROVIDERS: ATTEND Nurse Practitioner Family
DX: G89.29 Other chronic pain (principal); M47.816 Spondylosis without myelopathy or radiculopathy, lumbar region; M47.817 Spondylosis without myelopathy or radiculopathy, lumbosacral region; G47.33 Obstructive sleep apnea (adult) (pediatric); G25.81 Restless legs syndrome; E03.9 Hypothyroidism, unspecified; F32.9 Major depressive disorder, single episode, unspecified; Z88.5 Allergy status to narcotic agent; Z88.8 Allergy status to other drugs, medicaments and biological substances; Z79.899 Other long term (current) drug therapy

== ENCOUNTER → 2017-04-25 | Outpatient (REF) | payer OTHER ==
[2017-04-25 13:48] LABS: FREE T4 2.03 NG/DL (0.76-1.46)
== END ==
LOC: M LABDRAW1 11:03
PROVIDERS: ATTEND Internal Medicine Endocrinology, Diabetes & Metabolism
DX: E03.9 Hypothyroidism, unspecified (principal)

== ENCOUNTER → 2017-04-28 | Outpatient (CLI) | payer OTHER ==
--- NOTE | 2017-04-28 10:38 | REPMRS ---
Patient History The patient states she has not had a clinical breast exam in over a year. No known family history of cancer. Taking hormonal contraceptives for 8 years. Patient states she had a bilateral breast reduction 03/2015 Digital Mammo Screening Bilat: April 28, 2017 - Exam #: [id number] Bilateral CC and MLO view(s) were taken. Technologist: Ela Moore Technologist Prior study comparison: April 27, 2016, bilateral digital mammo screening bilat performed at [facility]. FINDINGS: There are scattered fibroglandular densities. There is a fairly symmetric fibroglandular pattern in both breasts. There has been no interval development of masses, areas of architectural distortion or clusters of microcalcifications typical of malignancy. ASSESSMENT: BI-RADS/ACR category 2 mammogram. Benign finding(s). Recommendation Routine screening mammogram of both breasts in 1 year (for women over age 40). This mammogram was interpreted with the aid of an FDA-approved computer-aided dectection system. Electronically Signed By: Balbir De La Torre MD 04/28/17 1038
== END ==
LOC: M RAD 10:00
PROVIDERS: ATTEND Family Medicine
DX: Z12.31 Encounter for screening mammogram for malignant neoplasm of breast (principal)

== ENCOUNTER → 2017-06-07 | Outpatient (CLI) | payer OTHER ==
--- NOTE | 2017-06-26 00:09 | ECWPNPC ---
PATIENT NAME: RANJITH EUGENE : 1970 GENDER: FEMALE VISIT DATE: 06/07/2017 DISCHARGE DATE: 06/07/17 0946 VISIT LOCKED DATE TIME: PHYSICIAN: ANAMIKA EUGENE RESOURCE: ANAMIKA EUGENE REASON FOR APPOINTMENT 1. POST PROCEDURE HISTORY OF PRESENT ILLNESS HISTORY OF PRESENT ILLNESS: PAIN THE PATIENT DESCRIBES THE PAIN... FALL RISK SCREENING: SCREENING :NO FALLS IN THE PAST YEAR TODAY'S VISIT: NOTES: S/P BILATERAL THERAPEUTIC LUMBAR FACET BLOCK AT L4-5 AND L5-S1. PAIN LEVEL PRIOR 7/10 AND POST AT 2/10 BUT BY THE END OF THE WEEK PAIN ESCALATED TO 9/10 AND COULD NOT FUNCTION. DID TAKE SOME MOTRIN WHICH DID HELP. SINCE THEN PAIN HAS DECREASED TO 4/10. STATES DOES NOT TOLERATE TRAMADOL (NAUSEA AND VOMITING) AND FEEL THE CYCLOBENZAPRINE IS NOT HELPFUL. PAIN WAS SHOOTING DOWN RIGHT LEG AND IT WAS VERY HARD TO WALK. TODAY PAIN IS 4/10 AND IS STILL HAVING PRICKLING SENSATION OVER THE THIGHS. NOTES FEET ARE FALLING ASLEEP LEFT> RIGHT. CURRENT MEDICATIONS TAKING KLONOPIN 1 MG TABLET 1 TABLET ORALLY AT NIGHT TAKING IRON 325 (65 FE) MG TABLET 1 TABLET ORALLY ONCE A DAY TAKING LYRICA 300 MG CAPSULE 2 CAPSULE ORALLY DAILY TAKING VITAMIN D 1000 UNIT TABLET 1 TABLET ORALLY ONCE A DAY TAKING HORIZANT 300 MG TABLET EXTENDED RELEASE 24 HOUR 2 TABLETS IN THE EVENING WITH FOOD ORALLY ONCE A DAY TAKING CYCLOBENZAPRINE HCL 10 MG TABLET 1 TABLET ORALLY THREE TIMES A DAY, NOTES: NOT LATELY TAKING TIROSINT 150 MCG CAPSULE 1 CAPSULE ON AN EMPTY STOMACH IN THE MORNING ORALLY ONCE A DAY WITH 125 DAILY NOT-TAKING TRAMADOL HCL 50 MG TABLET 1 TABLET NEEDED ORALLY 3 TIMES A DAYN NEEDED, NOTES: NOT LATELY MAKING HER SICK NOT-TAKING LEVOTHYROXINE SODIUM 300 MCG TABLET 1 TABLET ORALLY ONCE A DAY NOT-TAKING WELLBUTRIN 100 MG TABLET 300 IN AM AND 100 AT 12PM ORALLY DAILY NOT-TAKING LAMOTRIGINE 200 MG TABLET 1 TABLET ORALLY DAILY NOT-TAKING DEPO-PROVERA 150 MG/ML SUSPENSION 1 ML INTRAMUSCULAR EVERY 3 MONTHS NOT-TAKING PROZAC 20 MG CAPSULE 1 CAPSULE IN THE MORNING ORALLY ONCE A DAY NOT-TAKING ZOLOFT 25 MG TABLET 75 MG ORALLY ONCE A DAY, NOTES: 05/03/16 0700 NOT-TAKING CYANOCOBALAMIN 1000 MCG TABLET 1 TABLET ORALLY ONCE A DAY NOT-TAKING BACLOFEN 10 MG TABLET 1 TABLET WITH FOOD OR MILK ORALLY THREE TIMES A DAY NOT-TAKING VALIUM 5 MG TABLET 2 TABLET NEEDED ORALLY PRE SEDATION MEDICATION LIST REVIEWED AND RECONCILED WITH THE PATIENT PAST MEDICAL HISTORY BACK PAIN,FIBROMYALGIA,CARMEN,RESTLESS LEG,HYPOTHYROID,DEPRESSION ALLERGIES MORPHINE SULFATE: ITCHING: ALLERGY ANTI-INFLAMMATORY ENZYME: DUE TO GASTRIC BYPASS: CONTRAINDICATION SOCIAL HISTORY GENERAL: TOBACCO USE ARE YOU A:NONSMOKER ALCOHOL SCREENING POINTS0 INTERPRETATIONNEGATIVE HOLINESS [id number] NONE NO ROMAN CATHOLIC BELIEFS THAT WOULD IMPACT HEALTH CARE. LEARNING BARRIERS / SPECIAL NEEDS HEARING IMPAIRED?NO VISION IMPAIRED?NO COGNITIVELY IMPAIRED?NO READINESS TO LEARN?YES LEARNING PREFERENCES?NO LEARNING CAPABILITIES PRESENT?YES EMOTIONAL BARRIERS?NO SPECIAL DEVICES?NO PAIN CLINIC PFS, CLERGY, PUBLIC HEALTH REFERRALS PFS REFERRAL NEEDED?NO CLERGY REFERRAL NEEDED?NO PUBLIC HEALTH REFERRAL NEEDED?NO WAS THE PROVIDER NOTIFIED OF ANY PERTINENT INFO?NO HAS THE PATIENT BEEN EDUCATED REGARDING HIS/HER PLAN OF CARE?YES HAS THE PATIENT BEEN EDUCATED REGARDING PAIN, THE RISK FOR PAIN, THE IMPORTANCE OF EFFECTIVE PAIN MANAGEMENT, AND THE PAIN ASSESSMENT PROCESS?YES PATIENT: ____. ADVANCE DIRECTIVES HEALTH CARE PROXY?NO WOULD YOU LIKE MORE INFORMATION?NO REVIEW OF SYSTEMS REVIEWED BY: PROVIDER: . CONSTITUTIONAL: ANY CHANGE IN YOUR MEDICAL CONDITION? NO . CHILLS NO . FEVER NO . INFECTION: DO YOU HAVE NEW INFECTIONS? NO . DO YOU HAVE HISTORY OF MRSA? NO . MUSCULOSKELETAL: ANY NEW PATTERNS OF PAIN OR NUMBNESS? NO . GASTROENTEROLOGY: ANY NEW CHANGE IN BOWEL CONTROL? NO . GENITOURINARY: ANY NEW CHANGE IN BLADDER CONTROL? NO . IS THERE A CHANCE YOU COULD BE ? NO . HEMATOLOGY/LYMPH: DO YOU TAKE ANY BLOOD THINNERS? (FOR EXAMPLE- COUMADIN, PLAVIX, AGGRENOX, PLATEL, PRADAXA, OR XARELTO) NO . WHEN WAS YOUR LAST DOSE? DATE: TIME: . NEUROLOGY: HAVE YOU FALLEN IN THE PAST 6 MONTHS? NO . ANY NEW EXTREMITY NUMBNESS OR WEAKNESS? NO . CARDIOLOGY: DO YOU HAVE A PACEMAKER OR DEFIBRILLATOR? NO . RESPIRATORY: HAVE YOU BEEN SICK IN THE PAST WEEK? NO . FEVER NO . FLU LIKE SYMPTOMS? NO . COUGH NO . INTEGUMENTARY: DO YOU HAVE ANY RASHES OR OPEN SORES? NO . ALLERGIC/IMMUNO: ARE YOU ALLERGIC TO SHELLFISH OR IV DYE? NO . ANY NEW ALLERGIES? NO . PSYCHIATRIC: DO YOU HAVE THOUGHTS OF HURTING YOURSELF OR SOMEONE ELSE? NO . ARE YOU ABUSED, NEGLECTED, OR IN AN UNSAFE ENVIRONMENT? NO . ENDOCRINOLOGY: ARE YOU DIABETIC? NO . OTHER: DO YOU NEED ANY PRESCRIPTIONS? NO . IF YES, PLEASE LIST: ____ . ANY NEW PROBLEMS WITH YOUR MEDICATIONS? NO . WHEN DID YOU LAST EAT? ____ . WHEN DID YOU LAST DRINK? ____ . WHAT DID YOU LAST DRINK? ____ . NAME OF PERSON DRIVING YOU HOME? ____ . DO YOU HAVE ANY OTHER QUESTIONS OR CONCERNS NO . VITAL SIGNS WT 216 LBS, HT 65 IN, BMI 35.94 INDEX, BP 141/65 MM HG, HR 113 /MIN, RR 18 /MIN, TEMP 96.3 F, OXYGEN SAT % 96%, NA INITIALS SC 08:44, REVIEWED BY: NL. EXAMINATION GENERAL EXAMINATION: PSYCHALERT , ORIENTED X 3 , APPROPRIATE MOOD AND AFFECT . LUNGS:CLEAR TO AUSCULTATION BILATERALLY. HEART:HEART RATE RAPID, REGULAR. MUSCULOSKELETAL:POSTURE UPRIGHT. GAIT NONANTALGIC. POINT TENDERNESS OVER BILATERAL LUMBAR FACETS AND LUMBAR PARASPINOUS MUSCLES. INCREASED PAIN WITH BACK EXTENSION.. ASSESSMENTS SPONDYLOSIS OF LUMBAR REGION WITHOUT MYELOPATHY OR RADICULOPATHY - M47.816 (PRIMARY) SPONDYLOSIS OF LUMBOSACRAL REGION WITHOUT MYELOPATHY OR RADICULOPATHY - M47.817 TREATMENT SPONDYLOSIS OF LUMBAR REGION WITHOUT MYELOPATHY OR RADICULOPATHY START GABAPENTIN CAPSULE, 300 MG, 1 CAPSULE BEFORE BEDTIME, ORALLY, BID PRN PAIN, 30 DAY(S), 60, REFILLS 1 NOTES: INTRALAMINAL LUMBAR EPIDURAL WILL NEED AT LEAST ORAL SEDATIONPAPER SCRIPT WRITTEN FOR VICODAN 5/325 1 TAB EVERY 4 HRS PRN PAIN ,LUMBAR EPIDURAL INJECTION: YOUR PROCEDURE MATERIAL WAS PRINTED. PREVENTIVE MEDICINE REVIEWED PREPROCEDURE CARE AND PROCEDURE ITSELF / PT EXPRESSED UNDERSTANDING OF ALL. PROCEDURE CODES FA211 ESTABILISHED PATIENT [facility] FACILITY CHARGE DISPOSITION & COMMUNICATION FOLLOW UP AFTER INJECTION (REASON: CHECK AUTH FOFR INTRALAMINAR LESB ) ELECTRONICALLY SIGNED BY SALMA ANTONY ON 06/25/2017 AT 04:28 PM EST DISCLAIMER : THIS IS A VISIT SUMMARY EXTRACTED FROM THE [employer] CHART. IT IS NOT A COPY OF THE [employer] PROGRESS NOTE. MTDD
== END ==
LOC: M PAIN 08:45
PROVIDERS: ATTEND Nurse Practitioner Family
DX: G89.29 Other chronic pain (principal); M47.816 Spondylosis without myelopathy or radiculopathy, lumbar region; M47.817 Spondylosis without myelopathy or radiculopathy, lumbosacral region; G47.33 Obstructive sleep apnea (adult) (pediatric); G25.81 Restless legs syndrome; E03.9 Hypothyroidism, unspecified; F32.9 Major depressive disorder, single episode, unspecified; Z88.5 Allergy status to narcotic agent; Z88.8 Allergy status to other drugs, medicaments and biological substances; Z79.899 Other long term (current) drug therapy

== ENCOUNTER → 2017-06-28 | Outpatient (REF) | payer OTHER ==
[2017-06-28 12:27] LABS: FREE T4 1.03 NG/DL (0.76-1.46)
== END ==
LOC: M LABDRAW1 11:44
PROVIDERS: ATTEND Nurse Practitioner Family
DX: E03.9 Hypothyroidism, unspecified (principal)

== ENCOUNTER → 2017-07-24 | Outpatient (CLI) | payer OTHER ==
[~2017-07-24] MED LIST changes: -CYCL10TA PO; -EFFE75CA75 PO; -IRON325T PO; +ISOVUE-M 300 61% 15ML VIAL (Q9967) As Ordered; -KLON1TAB PO; +LIDOCAINE 1% SDV INJ 30 ML VIAL As Ordered; -LYRI300C PO; -MEDR1VL IM; -SYNT125T PO; -TRAM50TA2 PO; -VITA10002 PO; -VITA100067 PO; +diazePAM 5 MG TAB As Ordered; +methylPREDNISolone SUSP 40 MG/ML (DEPO-medrol) VIAL (J1030) As Ordered; +oxyCODONE 5MG TAB As Ordered
== END ==
LOC: M PAIN 08:30
DX: G89.29 Other chronic pain (principal); M51.17 Intervertebral disc disorders with radiculopathy, lumbosacral region; M79.7 Fibromyalgia; G47.33 Obstructive sleep apnea (adult) (pediatric); G25.81 Restless legs syndrome; E03.9 Hypothyroidism, unspecified; F32.9 Major depressive disorder, single episode, unspecified; Z88.5 Allergy status to narcotic agent; Z88.8 Allergy status to other drugs, medicaments and biological substances; Z79.899 Other long term (current) drug therapy
CPT/HCPCS: J1030

== ENCOUNTER → 2017-08-03 | Outpatient (REF) | payer OTHER ==
[2017-08-03 12:16] LABS: HEMATOCRIT 43.6 % (36.0-47.0); HEMOGLOBIN 14.4 g/dl (12.0-16.0); MEAN CORPUSCULAR HEMOGLOBIN 29.8 pg (27.0-33.0); MEAN CORPUSCULAR VOLUME 90.1 fl (80.0-96.0); PLATELET COUNT, AUTOMATED 228 10^3/uL (150-450); RED BLOOD COUNT 4.84 10^6/uL (4.00-5.40); RED CELL DISTRIBUTION WIDTH 13.1 % (11.5-14.5); WHITE BLOOD COUNT 6.7 10^3/uL (4.0-10.0)
[2017-08-03 12:42] LABS: IRON (FE) 129 UG/DL (50-170); TOTAL IRON BINDING CAPACITY 315 UG/DL (250-450)
== END ==
LOC: M LABDRAW1 11:04
DX: E03.9 Hypothyroidism, unspecified (principal)

== ENCOUNTER → 2017-08-14 | Outpatient (CLI) | payer OTHER | LOC: M PAIN 08:30 | DX: M47.817 Spondylosis without myelopathy or radiculopathy, lumbosacral region (principal); M47.816 Spondylosis without myelopathy or radiculopathy, lumbar region; M79.1 Myalgia; G47.33 Obstructive sleep apnea (adult) (pediatric); G25.81 Restless legs syndrome; E03.9 Hypothyroidism, unspecified; F32.9 Major depressive disorder, single episode, unspecified; Z79.899 Other long term (current) drug therapy; Z88.5 Allergy status to narcotic agent; Z88.8 Allergy status to other drugs, medicaments and biological substances | CPT/HCPCS: G0463 ==

== ENCOUNTER → 2017-09-07 | Outpatient (REF) | payer OTHER ==
[2017-09-07 14:29] LABS: FERRITIN 112 NG/ML (8-252); IRON (FE) 147 UG/DL (50-170); PERCENT SATURATION 48.5 % (13.2-45.0); TOTAL IRON BINDING CAPACITY 303 UG/DL (250-450)
== END ==
LOC: M LAB REF 13:41
DX: D50.9 Iron deficiency anemia, unspecified (principal)

== ENCOUNTER → 2017-10-06 | Outpatient (REF) | payer OTHER ==
[2017-10-06 11:30] LABS: THYROID STIMULATING HORMONE < 0.005 uIU/ML (0.358-3.740)
[2017-10-06 12:15] LABS: FREE T4 1.91 NG/DL (0.76-1.46)
== END ==
LOC: M LABDRAW1 07:34
DX: E03.9 Hypothyroidism, unspecified (principal)
CPT/HCPCS: 84443

== ENCOUNTER → 2017-10-26 | Outpatient (CLI) | payer OTHER ==
[2017-10-28 00:08] LABS: TISSUE TRANSGLUTAMINASE IgA <2 U/mL (0-3)
== END ==
LOC: M LAB 09:40
DX: D50.9 Iron deficiency anemia, unspecified (principal)
CPT/HCPCS: 82784

== ENCOUNTER → 2017-11-06 | Outpatient (CLI) | payer OTHER | LOC: M PAIN 09:15 | DX: G89.29 Other chronic pain (principal); M51.17 Intervertebral disc disorders with radiculopathy, lumbosacral region; M47.817 Spondylosis without myelopathy or radiculopathy, lumbosacral region; M47.816 Spondylosis without myelopathy or radiculopathy, lumbar region; M79.1 Myalgia; G47.33 Obstructive sleep apnea (adult) (pediatric); G25.81 Restless legs syndrome; E03.9 Hypothyroidism, unspecified; F32.9 Major depressive disorder, single episode, unspecified; R42 Dizziness and giddiness; Z79.891 Long term (current) use of opiate analgesic; Z79.899 Other long term (current) drug therapy; Z98.84 Bariatric surgery status; Z88.5 Allergy status to narcotic agent | CPT/HCPCS: G0463 ==

== ENCOUNTER 2017-11-10 11:33 | Day surgery (SDC) | payer OTHER ==
[2017-11-10] MEDS: NS 1,000 ML IV (12:00)
[2017-11-10] MEDS ORDERED: LIDOCAINE 2% INJ 100 MG/5 ML SDV (FOR ANES.) As Ordered (12:58)
[2017-11-10] MEDS ORDERED: PROPOFOL 200 MG/20 ML VIAL As Ordered (12:58)
[2017-11-10] MEDS ORDERED: fentaNYL 100 MCG/2 ML INJECTION (J3010) As Ordered (12:59)
== END 2017-11-10 14:10 | disposition home or self-care (01) ==
LOC: M OPP 11:33
DX: D50.9 Iron deficiency anemia, unspecified (principal); K57.30 Diverticulosis of large intestine without perforation or abscess without bleeding; K64.8 Other hemorrhoids; Z98.0 Intestinal bypass and anastomosis status; R00.8 Other abnormalities of heart beat; E03.9 Hypothyroidism, unspecified; R42 Dizziness and giddiness; G25.81 Restless legs syndrome; F41.9 Anxiety disorder, unspecified; F32.9 Major depressive disorder, single episode, unspecified; M79.7 Fibromyalgia; M54.5 Low back pain; G47.30 Sleep apnea, unspecified; Z88.5 Allergy status to narcotic agent; Z88.8 Allergy status to other drugs, medicaments and biological substances; Z79.899 Other long term (current) drug therapy
CPT/HCPCS: 45378

== ENCOUNTER → 2017-12-05 | Outpatient (CLI) | payer OTHER ==
[~2017-12-05] MED LIST changes: -diazePAM 5 MG TAB As Ordered; -oxyCODONE 5MG TAB As Ordered
== END ==
LOC: M PAIN 08:30
DX: G89.29 Other chronic pain (principal); M48.07 Spinal stenosis, lumbosacral region; M54.17 Radiculopathy, lumbosacral region; M79.7 Fibromyalgia; G25.81 Restless legs syndrome; G47.33 Obstructive sleep apnea (adult) (pediatric); E03.9 Hypothyroidism, unspecified; F32.9 Major depressive disorder, single episode, unspecified; Z79.899 Other long term (current) drug therapy; Z88.5 Allergy status to narcotic agent; Z88.6 Allergy status to analgesic agent; Z86.69 Personal history of other diseases of the nervous system and sense organs
CPT/HCPCS: J1030

== ENCOUNTER → 2017-12-19 | Outpatient (REF) | payer OTHER ==
[2017-12-19 14:08] LABS: FREE T4 1.82 NG/DL (0.76-1.46); THYROID STIMULATING HORMONE < 0.005 uIU/ML (0.358-3.740)
== END ==
LOC: M LABDRAW1 12:05
DX: E03.9 Hypothyroidism, unspecified (principal)

== ENCOUNTER → 2018-01-25 | Outpatient (REF) | payer OTHER ==
[2018-01-25 13:41] LABS: FREE T4 1.51 NG/DL (0.76-1.46); THYROID STIMULATING HORMONE < 0.005 uIU/ML (0.358-3.740)
== END ==
LOC: M LABDRAW1 11:59
DX: E03.9 Hypothyroidism, unspecified (principal)